=== PATIENT | male | born 2000 | race Caucasian/White ===

== ENCOUNTER → 2023-10-04 | Outpatient (CLI) | payer BC, OTHER ==
--- NOTE | 2023-10-04 16:44 | XR ---
EXAMINATION TYPE: XR chest 2V DATE OF EXAM: 10/04/2023 3:54 PM CLINICAL INDICATION:Male, 23 years old with history of [id number] PRE OP,MORBID OBESITY; [facility] COMPARISON: Chest radiographs from 07/11/2007. TECHNIQUE: XR chest 2V Frontal and lateral views of the chest. FINDINGS: Lungs/Pleura: There is no evidence of pleural effusion, focal consolidation, or pneumothorax. Pulmonary vascularity: Unremarkable. Heart/mediastinum: Cardiomediastinal silhouette is unremarkable. Musculoskeletal: No acute osseous pathology. IMPRESSION: No acute cardiopulmonary disease/process.
== END | disposition home or self-care (01) ==
LOC: RADXRYALE 15:41
PROVIDERS: ATTEND Family Medicine
DX: Z01.818 Encounter for other preprocedural examination (principal); E66.2 Morbid (severe) obesity with alveolar hypoventilation
CPT/HCPCS: 71046

== ENCOUNTER 2023-10-09 07:55 | Day surgery (SDC) | payer BC, OTHER ==
[2023-10-08 08:31] VITALS: BMI 53.1
[~2023-10-09 07:55] MED LIST: HYDROmorphone 0.5 MG/0.5 ML SYRINGE IVP PRN; ONDANSETRON 4 MG/2 ML VIAL IVP ONE; fentaNYL (PF) 50 MCG/ML 2 ML AMP IV PRN; metroNIDAZOLE-NS PMX 500 MG in SALINE 1 100ML.BAG IVPB PRN
[2023-10-09] MEDS: IV FLUID CONTINUATION 1,000 ML IV ONE (08:48)
[2023-10-09] MEDS ORDERED: LIDOCAINE 1% INJ 10MG/ML (20 ML MDV) ONE (08:57)
[2023-10-09] MEDS ORDERED: fentaNYL (PF) 50 MCG/ML 2 ML AMP ONE (08:57)
[2023-10-09] MEDS ORDERED: MIDAZOLAM 2 MG/2 ML VIAL ONE (08:57)
[2023-10-09] MEDS ORDERED: SUCCINYLCHOLINE CHLORIDE 200 MG/10 ML VIAL IV ONE (08:57)
[2023-10-09] MEDS ORDERED: DEXAMETHASONE SOD PHOSPHATE 10 MG/ML 1 ML VIAL ONE (08:57)
[2023-10-09] MEDS ORDERED: ONDANSETRON 4 MG/2 ML VIAL ONE (08:57)
[2023-10-09] MEDS ORDERED: PROPOFOL 10 MG/ML 20 ML VIAL IV ONE (08:57)
[2023-10-09] MEDS: LACTATED RINGERS 1,000 ML IV SCH (08:58)
[2023-10-09] MEDS: ceFAZolin 3 GM in SODIUM CHLORIDE 0.9% 100 ML IVPB PRN (09:15)
[2023-10-09] MEDS: LIDOCAINE 2%-EPI 1:100,000 20 ML VIAL SUBMUCOSAL ONE ×2 (09:22)
[2023-10-09] MEDS: GELATIN SPONGE,ABSORB (SMALL) 1 EACH SPONGE TOPICAL ONE (09:23)
[2023-10-09 10:35] VITALS: TEMP 99.5
[2023-10-09] MEDS ORDERED: KETOROLAC 15 MG/ML 1 ML VIAL IM STA (11:30)
[2023-10-09] MEDS: KETOROLAC 15 MG/ML 1 ML VIAL IVP STA (11:39)
[2023-10-09 12:02] VITALS: BP 151/90; PULSE 98; RESP 20
--- NOTE | 2023-10-09 12:51 | OP ---
OPERATIVE REPORT DATE OF SERVICE : 10/09/2023 PREOPERATIVE DIAGNOSES: 1. Autism. 2. Generalized caries. 3. Abscessed multiple teeth. POSTOPERATIVE DIAGNOSES: 1. Autism. 2. Generalized caries. 3. Abscessed multiple teeth. PROCEDURE PERFORMED: Surgical extraction of teeth numbers 1, 2, 5, 6, 16, C, 21, 17, 32, 18, 19 and 31. ANESTHESIA: General via oral endotracheal intubation. ESTIMATED BLOOD LOSS: 3 mL. DRAINS: None. COMPLICATIONS: None. SPECIMENS: None. INDICATIONS FOR PROCEDURE: The patient is a 23-year-old male, who is autistic and nonverbal and is morbidly obese. He presented with his mother for evaluation and treatment of multiple carious teeth and abscessed teeth. The patient was examined and will undergo removal of multiple teeth in the OR setting. The risks, benefits, and alternatives of the procedure were reviewed with mother at length and all of her questions answered to her satisfaction. DESCRIPTION OF PROCEDURE: The patient was taken to the operating room, placed on the operating table in the supine position. Next, the patient was induced via the IV route and he was intubated orally. A general plane of anesthesia was then maintained throughout the operative course. The patient was prepped and draped in usual manner for this procedure. Attention was then directed to the oropharynx, where a throat pack was placed notifying both Nursing and Anesthesia. Attention was then directed to the lower right quadrant, where 2% lidocaine with [id number] parts epinephrine was used to provide local anesthesia in all 4 quadrants. Attention was then directed to the lower right quadrant, where teeth numbers 31 and 32 were removed following the development of an envelope flap and followed by bone removal. The teeth were delivered utilizing elevator and forceps technique. The wound was irrigated thoroughly and 3-0 chromic gut was used to reapproximate the flap. Attention was then directed to the upper right quadrant, where a similar technique utilizing an elevator and forceps method was used to extract teeth numbers 1, 2, 5, 6, and C. Attention was then directed to the lower left quadrant, where similar technique was utilized to take out teeth #17, 18, 19 and 21. Attention was then directed to the upper left quadrant, where tooth #16 was removed utilizing a surgical technique as described. The wounds were displaying hemostasis at the end of the procedure. The patient tolerated the procedure well without complications. The throat pack was removed notifying both Nursing and Anesthesia. MMODL / IJN: [id number] /
== END 2023-10-09 12:39 | disposition home or self-care (01) ==
LOC: OR 07:55
PROVIDERS: ATTEND Dentist Oral and Maxillofacial Surgery
DX: K02.9 Dental caries, unspecified (principal); K04.7 Periapical abscess without sinus; F84.0 Autistic disorder; E78.5 Hyperlipidemia, unspecified; H91.90 Unspecified hearing loss, unspecified ear; K21.9 Gastro-esophageal reflux disease without esophagitis; E66.01 Morbid (severe) obesity due to excess calories; Z79.1 Long term (current) use of non-steroidal anti-inflammatories (NSAID); Z98.890 Other specified postprocedural states; Z68.43 Body mass index [BMI] 50.0-59.9, adult
CPT/HCPCS: 41899; J2250; J0330; J1100; J0690; J2405; J2001; J3010; J1885; J2704